=== PATIENT | female | born 1965 | race Caucasian/White ===

== ENCOUNTER → 2016-07-26 | Outpatient (CLI) | payer OTHER ==
[2015-07-25 14:10] VITALS: BP 137/68
[2016-07-26 08:04] LABS: BASO % 1 % (0-3); EOS % 5 % (0-3); HEMATOCRIT 43.6 % (36.0-47.0); HEMOGLOBIN 14.1 g/dL (12.0-15.5); LYMPH # 1.2 x10^3/uL (1.0-4.8); LYMPH % 34 % (24-48); MEAN CORPUSCULAR HEMOGLOBIN 30 pg (25-35); MEAN CORPUSCULAR HGB CONC 32 g/dL (31-37); MEAN CORPUSCULAR VOLUME 92 fL (79-100); MONO % 8 % (0-9); NEUT % 52 % (31-73); PLATELET COUNT 137 x10^3/uL (140-400); RED BLOOD COUNT 4.74 x10^6/uL (3.50-5.40); RED CELL DISTRIBUTION WIDTH 13.8 % (11.5-14.5); WHITE BLOOD COUNT 3.4 x10^3/uL (4.0-11.0)
[2016-07-26 08:05] LABS: BILIRUBIN,URINE NEGATIVE (NEG); GLUCOSE,URINE NEGATIVE (NEG); NITRITE,URINE NEGATIVE (NEG); PH,URINE 5.5; PROTEIN,URINE NEGATIVE (NEG-TRACE); UROBILINOGEN,URINE 0.2 mg/dL (0.2 mg/dL)
[2016-07-26 08:22] LABS: ALBUMIN 3.7 g/dL (3.4-5.0); ALBUMIN/GLOBULIN RATIO 1.1 (1.0-1.7); BACTERIA,URINE MODERATE /HPF (0-FEW); CALCIUM 9.9 mg/dL (8.5-10.1); CHOLESTEROL/HDL RATIO 1.6; CREATININE 1.1 mg/dL (0.6-1.0); POTASSIUM 3.9 mmol/L (3.5-5.1); RBC,URINE OCC /HPF (0-2); SQUAMOUS EPITHELIAL CELL,UR MANY /LPF; TOTAL PROTEIN 7.2 g/dL (6.4-8.2); WBC,URINE 20-40 /HPF (0-4)
== END | disposition home or self-care (01) ==
LOC: LAB 07:30
PROVIDERS: ATTEND Family Medicine
DX: Z00.00 Encounter for general adult medical examination without abnormal findings (principal); Z80.41 Family history of malignant neoplasm of ovary
CPT/HCPCS: 36415; 80053; 80061; 81001; 84443; 85027; 86304; 87086

== ENCOUNTER → 2016-11-16 | Outpatient (CLI) | payer OTHER ==
[2015-07-25 14:10] VITALS: BP 137/68
--- NOTE | 2016-11-16 12:33 | RAD ---
Chest, 2 views, 11/16/2016: History: Cough The heart size is normal. Mild pleural opacities over the apices are probably due to scarring. No acute pulmonary infiltrate is seen. There is no evidence of pleural fluid. IMPRESSION: 1. Apical opacities probably due to scarring. 2. No acute cardiopulmonary abnormality is detected.
== END | disposition home or self-care (01) ==
LOC: RAD 10:19
PROVIDERS: ATTEND Family Medicine
DX: R05 Cough (principal)
CPT/HCPCS: 71020

== ENCOUNTER → 2017-07-28 | Outpatient (CLI) | payer OTHER ==
[2017-07-28 08:37] LABS: ADD MAN DIFF? NO
[2017-07-28 08:45] LABS: BASO % 1 % (0-3); EOS # 0.1 x10^3/uL (0.0-0.7); EOS % 3 % (0-3); HEMOGLOBIN 15.8 g/dL (12.0-15.5); LYMPH # 0.9 x10^3/uL (1.0-4.8); LYMPH % 24 % (24-48); MEAN CORPUSCULAR HEMOGLOBIN 31 pg (25-35); MEAN CORPUSCULAR HGB CONC 34 g/dL (31-37); MEAN CORPUSCULAR VOLUME 91 fL (79-100); MONO # 0.3 x10^3/uL (0.0-1.1); MONO % 8 % (0-9); NEUT # 2.5 x10^3uL (1.8-7.7); NEUT % 63 % (31-73); PLATELET COUNT 166 x10^3/uL (140-400); RED BLOOD COUNT 5.16 x10^6/uL (3.50-5.40); RED CELL DISTRIBUTION WIDTH 13.8 % (11.5-14.5); WHITE BLOOD COUNT 3.9 x10^3/uL (4.0-11.0)
[2017-07-28 09:11] LABS: ALBUMIN 4.1 g/dL (3.4-5.0); ALBUMIN/GLOBULIN RATIO 1.1 (1.0-1.7); ALK PHOS 92 U/L (46-116); ALT (SGPT) 25 U/L (14-59); ANION GAP 8 (6-14); AST (SGOT) 24 U/L (15-37); BLOOD UREA NITROGEN 20 mg/dL (7-20); BUN/CREATININE RATIO 22 (6-20); CALCIUM 10.7 mg/dL (8.5-10.1); CARBON DIOXIDE 30 mmol/L (21-32); CHLORIDE 104 mmol/L (98-107); CHOLESTEROL 188 mg/dL (0-200); CREATININE 0.9 mg/dL (0.6-1.0); GFR 65.2; GLUCOSE 82 mg/dL (70-99); HDLC 111 mg/dL (40-60); LDLC 71 mg/dL (0-100); NON-HDL CHOLESTEROL 77 mg/dL (0-129); POTASSIUM 4.5 mmol/L (3.5-5.1); SODIUM 142 mmol/L (136-145); TOTAL BILIRUBIN 2.1 mg/dL (0.2-1.0); TOTAL PROTEIN 7.7 g/dL (6.4-8.2); TRIGLYCERIDES 31 mg/dL (0-150); VLDLC 6 mg/dL (0-40)
[2017-07-28 09:12] LABS: CHOLESTEROL/HDL RATIO 1.7
[2017-07-28 09:19] LABS: THYROID STIM HORMONE (TSH) 1.296 uIU/mL (0.358-3.74)
[2017-07-28 10:11] LABS: BILIRUBIN,URINE NEGATIVE (NEG); CLARITY,URINE CLEAR; COLOR,URINE YELLOW; GLUCOSE,URINE NEGATIVE (NEG); NITRITE,URINE NEGATIVE (NEG); PROTEIN,URINE NEGATIVE (NEG-TRACE); UROBILINOGEN,URINE 0.2 mg/dL (0.2 mg/dL)
[2017-07-28 10:52] LABS: BACTERIA,URINE 0 /HPF (0-FEW); RBC,URINE 0 /HPF (0-2); SQUAMOUS EPITHELIAL CELL,UR MOD /LPF; WBC,URINE 0 /HPF (0-4)
[2017-07-28 19:13] LABS: ESTRADIOL LEVEL 34.8 pg/mL (.); FSH 119.9 mIU/mL (.)
== END | disposition home or self-care (01) ==
LOC: LAB 08:25
DX: Z00.01 Encounter for general adult medical examination with abnormal findings (principal); N92.6 Irregular menstruation, unspecified; Z80.41 Family history of malignant neoplasm of ovary
CPT/HCPCS: 36415; 80053; 80061; 81001; 82306; 82670; 83001; 84443; 85025; 86304; 87086

== ENCOUNTER → 2017-08-14 | Outpatient (CLI) | payer OTHER ==
[2017-08-14 16:21] LABS: IONIZED CALCIUM 1.49 mmol/L (1.13-1.32)
[2017-08-15 09:20] LABS: CALCIUM PTH 11.2 mg/dL (8.7-10.2); CREATININE PTH 1.06 mg/dL (0.57-1.00); PHOSPHORUS PTH 3.1 mg/dL (2.5-4.5); PTH INTACT 99 pg/mL (15-65); eGFR AFRICAN-AMER 69 (>59); eGFR NON AFRICAN-AMER 60 (>59)
== END | disposition home or self-care (01) ==
LOC: LAB 15:51
DX: E83.52 Hypercalcemia (principal)
CPT/HCPCS: 36415; 82310; 83970

== ENCOUNTER → 2017-08-29 | Outpatient (CLI) | payer OTHER | END | disposition home or self-care (01) | LOC: US 13:50 | DX: R97.1 Elevated cancer antigen 125 [CA 125] (principal); Z78.0 Asymptomatic menopausal state; Z80.41 Family history of malignant neoplasm of ovary | CPT/HCPCS: 76830; 76856 ==

== ENCOUNTER → 2017-09-25 | Outpatient (CLI) | payer OTHER ==
[2017-09-25 11:45] LABS: IONIZED CALCIUM 1.46 mmol/L (1.13-1.32)
[2017-09-25 11:52] LABS: CALCIUM 10.3 mg/dL (8.5-10.1)
[2017-09-25 11:52] LABS: PHOSPHORUS 3.4 mg/dL (2.6-4.7)
[2017-09-26 13:19] LABS: CALCIUM PTH 10.2 mg/dL (8.7-10.2); CREATININE PTH 0.94 mg/dL (0.57-1.00); PHOSPHORUS PTH 3.2 mg/dL (2.5-4.5); PTH INTACT 123 pg/mL (15-65); eGFR AFRICAN-AMER 80 (>59); eGFR NON AFRICAN-AMER 69 (>59)
== END | disposition home or self-care (01) ==
LOC: LAB 11:17
DX: E83.52 Hypercalcemia (principal)
CPT/HCPCS: 36415; 82310; 83970; 84100

== ENCOUNTER → 2017-09-28 | Outpatient (CLI) | payer OTHER | END | disposition home or self-care (01) | LOC: NM 09:01 | DX: D35.1 Benign neoplasm of parathyroid gland (principal); E83.52 Hypercalcemia | CPT/HCPCS: 78070; 96374; A9500 ==

== ENCOUNTER → 2017-11-06 | Outpatient (CLI) | payer OTHER | END | disposition home or self-care (01) | LOC: LAB 11:44 | DX: E55.9 Vitamin D deficiency, unspecified (principal) | CPT/HCPCS: 36415; 82306 ==

== ENCOUNTER → 2017-11-09 | Outpatient (CLI) | payer OTHER | END | disposition home or self-care (01) | LOC: KCIC US 15:29 | DX: E21.3 Hyperparathyroidism, unspecified (principal); E55.9 Vitamin D deficiency, unspecified | CPT/HCPCS: 76536 ==

== ENCOUNTER → 2018-02-20 | Outpatient (CLI) | payer OTHER | END | disposition home or self-care (01) | LOC: MAMMO 10:43 | DX: R92.8 Other abnormal and inconclusive findings on diagnostic imaging of breast (principal); E55.9 Vitamin D deficiency, unspecified; Z80.41 Family history of malignant neoplasm of ovary | CPT/HCPCS: 77065 ==

== ENCOUNTER 2018-02-28 06:12 | Observation (INO) | payer OTHER ==
[2018-02-28] MEDS: IV RINGERS,LACTATED 1000ML 1,000 ML IV (06:42)
[2018-02-28] MEDS ORDERED: ONDANSETRON PF 4 MG/2 ML VIAL. IV ×2 (07:00→09:30)
[2018-02-28] MEDS ORDERED: PROCHLORPERAZINE 10 MG/2 ML VIAL. IV (07:00)
[2018-02-28] MEDS ORDERED: MORPHINE SULFATE 2 MG/ML DISP.SYRIN. IV ×2 (07:00→09:30)
[2018-02-28] MEDS ORDERED: LIDOCAINE 1% PF 2 ML VIAL. ID (07:00)
[2018-02-28] MEDS ORDERED: ePHEDrine PF IN SALINE 50 MG/5 ML DISP.SYRIN IV (07:12)
[2018-02-28] MEDS ORDERED: ONDANSETRON PF 4 MG/2 ML VIAL. (07:12)
[2018-02-28] MEDS ORDERED: DEXAMETHASONE SOD PHOS 20 MG/5 ML VIAL. (07:12)
[2018-02-28] MEDS ORDERED: PHENYLEPHRINE in 0.9% NACL PF 1 MG/10 ML SYRINGE. IV (07:12)
[2018-02-28] MEDS ORDERED: MIDAZOLAM HCL/PF 2 MG/2 ML VIAL. (07:13)
[2018-02-28] MEDS ORDERED: ROCURONIUM 50 MG/5 ML VIAL. (07:14)
[2018-02-28] MEDS ORDERED: fentaNYL PF VIAL 100 MCG/2 ML VIAL ×3 (07:14→09:41)
[2018-02-28] MEDS ORDERED: NEOSTIGMINE METHYLSULFATE 5 MG/5 ML SYRINGE. (08:05)
[2018-02-28] MEDS ORDERED: GLYCOPYRROLATE 1 MG/5 ML VIAL. ×2 (08:05→10:08)
[2018-02-28] MEDS ORDERED: diphenhydrAMINE 50 MG/ML VIAL (08:06)
[2018-02-28] MEDS ORDERED: FAMOTIDINE 20 MG/2 ML VIAL (08:06)
[2018-02-28] MEDS ORDERED: 0.9 % SODIUM CHLORIDE 10 ML DISP.SYRIN. IV (09:30)
[2018-02-28] MEDS ORDERED: HYDROcodone/APAP 5/325MG 1 TAB TABLET PO (09:30)
[2018-02-28] MEDS: fentaNYL PF VIAL 100 MCG/2 ML VIAL IV ×2 (10:00→10:46)
[2018-02-28] MEDS ORDERED: ALBUMIN HUMAN 5% 0 ML IV (10:16)
[2018-02-28] MEDS: GLYCOPYRROLATE 1 MG/5 ML VIAL. IV (10:28)
[2018-02-28] MEDS: IV 1/2 NORMAL SALINE 1,000 ML IV ×2 (11:32→22:45)
[2018-02-28 17:31] LABS: CALCIUM 9.4 mg/dL (8.5-10.1)
[2018-02-28] MEDS: ACETAMINOPHEN 325 MG TABLET. PO (21:36)
[2018-03-01] MEDS: HYDROcodone/APAP 5/325MG 1 TAB TABLET PO (08:30)
[2018-03-01 09:06] LABS: CALCIUM 8.5 mg/dL (8.5-10.1)
== END 2018-03-01 12:40 | disposition home or self-care (01) ==
LOC: SURG 06:12 → 4 NORTH 09:25
PROVIDERS: Surgery
DX: E21.3 Hyperparathyroidism, unspecified (principal)
CPT/HCPCS: 36415; 82310; 88305; 88331; A7015; G0378; G0379; J1100; J1200; J2250; J2370; J2405; J2710; J3010; J3490; P9045; S0028

== ENCOUNTER → 2018-03-13 | Outpatient (CLI) | payer OTHER ==
[2018-03-01 11:00] VITALS: BP 99/54
[~2018-03-13] MED LIST: CALC1TAB67 PO; HYDR-2758 PO
== END | disposition home or self-care (01) ==
LOC: LAB 13:18
PROVIDERS: ATTEND Surgery
DX: E21.3 Hyperparathyroidism, unspecified (principal)
CPT/HCPCS: 36415; 82310

== ENCOUNTER → 2018-07-25 | Outpatient (CLI) | payer OTHER ==
[2018-03-01 11:00] VITALS: BP 99/54
[~2018-07-25] MED LIST changes: -HYDR-2758 PO; +HYDR-2761 PO
[2018-07-25 10:18] LABS: BASO % 1 % (0-3); EOS # 0.2 x10^3/uL (0.0-0.7); EOS % 4 % (0-3); HEMATOCRIT 42.3 % (36.0-47.0); HEMOGLOBIN 14.5 g/dL (12.0-15.5); LYMPH % 24 % (24-48); MEAN CORPUSCULAR HEMOGLOBIN 31 pg (25-35); MEAN CORPUSCULAR HGB CONC 34 g/dL (31-37); MEAN CORPUSCULAR VOLUME 91 fL (79-100); MONO # 0.3 x10^3/uL (0.0-1.1); MONO % 7 % (0-9); NEUT # 2.7 x10^3uL (1.8-7.7); NEUT % 64 % (31-73); PLATELET COUNT 168 x10^3/uL (140-400); RED BLOOD COUNT 4.66 x10^6/uL (3.50-5.40); RED CELL DISTRIBUTION WIDTH 14.1 % (11.5-14.5); WHITE BLOOD COUNT 4.2 x10^3/uL (4.0-11.0)
[2018-07-25 10:19] LABS: BILIRUBIN,URINE NEGATIVE (NEG); CLARITY,URINE CLEAR; COLOR,URINE YELLOW; NITRITE,URINE NEGATIVE (NEG); PROTEIN,URINE NEGATIVE (NEG-TRACE); UROBILINOGEN,URINE 0.2 mg/dL (0.2 mg/dL)
[2018-07-25 10:27] LABS: SQUAMOUS EPITHELIAL CELL,UR OCC /LPF
[2018-07-25 10:29] LABS: BACTERIA,URINE 0 /HPF (0-FEW); RBC,URINE 0 /HPF (0-2); WBC,URINE OCC /HPF (0-4)
[2018-07-25 10:40] LABS: ALBUMIN 3.9 g/dL (3.4-5.0); CALCIUM 9.3 mg/dL (8.5-10.1); GFR 57.6; TOTAL BILIRUBIN 2.1 mg/dL (0.2-1.0); TOTAL PROTEIN 7.7 g/dL (6.4-8.2)
[2018-07-25 10:48] LABS: FREE T4 0.76 ng/dL (0.76-1.46); THYROID STIM HORMONE (TSH) 1.513 uIU/mL (0.358-3.74)
[2018-07-25 16:11] LABS: CHOLESTEROL/HDL RATIO 1.7
[2018-07-25 22:10] LABS: CALCIUM PTH 9.3 mg/dL (8.7-10.2); CREATININE PTH 0.98 mg/dL (0.57-1.00); PHOSPHORUS PTH 3.7 mg/dL (2.5-4.5); PTH INTACT 63 pg/mL (15-65)
== END | disposition home or self-care (01) ==
LOC: LAB 07:50
PROVIDERS: ATTEND Family Medicine
DX: Z00.00 Encounter for general adult medical examination without abnormal findings (principal); E04.1 Nontoxic single thyroid nodule
CPT/HCPCS: 36415; 80053; 80061; 81001; 82306; 83970; 84439; 84443; 85025

== ENCOUNTER → 2019-02-19 | Outpatient (CLI) | payer OTHER ==
[2018-03-01 11:00] VITALS: BP 99/54
--- NOTE | 2019-02-19 13:28 | RAD ---
DATE: February 19, 2019 EXAM: MAMMO ANIKA SCREENING BILATERAL HISTORY: Screening study. COMPARISON: 2016 and 2018 This study was interpreted with the benefit of Computerized Aided Detection (CAD). 2-D digital mammographic views of both breasts were performed in the CC and MLO projections. 3-D digital tomosynthesis images of both breasts were performed in the CC and MLO projections and reviewed on a computer workstation. FINDINGS: Breast Density: HETERO The breast parenchyma is heterogenously dense, which could reduce sensitivity of mammography. Breast parenchyma level C.. There are no dominant suspicious masses, suspicious microcalcifications or evidence of architectural distortion. IMPRESSION: No mammographic indicators for malignancy. BI-RADS CATEGORY: 1 NEGATIVE RECOMMENDED FOLLOW-UP: 12M 12 MONTH FOLLOW-UP PQRS compliance statement: Patient information was entered into a reminder system with a target due date February 21, 2020 for the next mammogram. Mammography is a sensitive method for finding small breast cancers, but it does not detect them all and is not a substitute for careful clinical examination. A negative mammogram does not negate a clinically suspicious finding and should not result in delay in biopsying a clinically suspicious abnormality. "Our facility is accredited by the [employer] Mammography [employer]." The patient's breast density may affect the ability of mammography to detect breast cancer. There are 4 categories of breast density, A, B, C and D. Breast density A means that most of the breast tissue is replaced with adipose tissue and therefore is not dense. Breast density B means that the breast tissue is mildly dense and scattered. Breast density C means that the breast tissue is heterogeneously dense. Breast density D means that the breast tissue is very dense. Breast densities especially C and D may decrease the sensitivity of mammography to detect breast cancer. Therefore, the patient may benefit from 3-D breast mammography (3D breast tomography) as a part of their screening mammogram. Insurance may or may not pay for this additional imaging. The patient's breast density based on today's mammogram is category C.
== END | disposition home or self-care (01) ==
LOC: MAMMO 10:54
PROVIDERS: ATTEND Family Medicine
DX: Z12.31 Encounter for screening mammogram for malignant neoplasm of breast (principal)
CPT/HCPCS: 77063; 77067

== ENCOUNTER → 2019-09-13 | Outpatient (CLI) | payer OTHER ==
[2018-03-01 11:00] VITALS: BP 99/54
== END | disposition home or self-care (01) ==
LOC: LAB 12:13
PROVIDERS: ATTEND Nurse Practitioner Gerontology
DX: Z11.59 Encounter for screening for other viral diseases (principal)
CPT/HCPCS: 36415; 86803

== ENCOUNTER → 2019-10-01 | Outpatient (CLI) | payer OTHER ==
[2018-03-01 11:00] VITALS: BP 99/54
--- NOTE | 2019-10-01 16:07 | RAD ---
EXAM: Pelvis and right hip, 3 views. HISTORY: Pain. COMPARISON: None. FINDINGS: A frontal view the pelvis and 2 views of the right hip are obtained. There is no fracture, dislocation or subluxation. The femoral heads are normal in configuration. IMPRESSION: No acute osseous finding. Electronically signed by: Erin Pappas MD (10/01/2019 4:04 PM) [id number]
== END | disposition home or self-care (01) ==
LOC: RAD 14:57
PROVIDERS: ATTEND Nurse Practitioner Gerontology
DX: M25.551 Pain in right hip (principal)
CPT/HCPCS: 73502

== ENCOUNTER → 2020-04-29 | Outpatient (CLI) | payer OTHER ==
[2018-03-01 11:00] VITALS: BP 99/54
--- NOTE | 2020-04-29 17:29 | RAD ---
EXAMINATION: Bilateral screening mammogram, 04/29/2020 9:00 AM CLINICAL INDICATION: 54-year-old woman presenting for screening mammogram. COMPARISON: 02/13/2018 and 02/19/2019 TECHNIQUE: Digital bilateral full-field CC and MLO views, and CC and MLO tomosynthesis views of the breasts were obtained. CAD was utilized. FINDINGS: The breasts are heterogeneously dense, which may obscure small masses. There is no mass, suspicious calcification, or architectural distortion. IMPRESSION: 1. No mammographic evidence of malignancy. 2. BI-RADS 1: Negative. 3. Routine annual screening mammogram is recommended in 1 year. The patient will receive a reminder letter by mail when she is due for her next exam. Electronically signed by: Yola Mcmillan MD (04/29/2020 5:26 PM) [id number]
== END ==
LOC: MAMMO 08:58
PROVIDERS: ATTEND Nurse Practitioner Gerontology
DX: Z12.31 Encounter for screening mammogram for malignant neoplasm of breast (principal)
CPT/HCPCS: 77063; 77067

== ENCOUNTER → 2020-06-15 | Outpatient (CLI) | payer OTHER ==
[2018-03-01 11:00] VITALS: BP 99/54
== END ==
LOC: SPEC 17:10
PROVIDERS: ATTEND Nurse Practitioner Gerontology
DX: Z00.00 Encounter for general adult medical examination without abnormal findings (principal)
CPT/HCPCS: 88175

== ENCOUNTER → 2020-06-17 | Outpatient (CLI) | payer OTHER ==
[2018-03-01 11:00] VITALS: BP 99/54
[2020-06-17 09:41] LABS: HEMATOCRIT 39.8 % (36.0-47.0); HEMOGLOBIN 13.3 g/dL (12.0-15.5); RED BLOOD COUNT 4.46 x10^6/uL (3.50-5.40); RED CELL DISTRIBUTION WIDTH 15.3 % (11.5-14.5); WHITE BLOOD COUNT 3.3 x10^3/uL (4.0-11.0)
[2020-06-17 09:56] LABS: ALBUMIN 3.8 g/dL (3.4-5.0); ALBUMIN/GLOBULIN RATIO 1.2 (1.0-1.7); CALCIUM 9.3 mg/dL (8.5-10.1); GFR 57.1; POTASSIUM 4.2 mmol/L (3.5-5.1); TOTAL BILIRUBIN 1.3 mg/dL (0.2-1.0)
[2020-06-17 19:09] LABS: CA 125 9.5 U/mL (0.0-38.1)
[2020-06-18 00:08] LABS: CALCIUM PTH 9.7 mg/dL (8.7-10.2); PHOSPHORUS PTH 4.2 mg/dL (3.0-4.3); PTH INTACT 41 pg/mL (15-65)
== END ==
LOC: LAB 08:55
PROVIDERS: ATTEND Nurse Practitioner Gerontology
DX: Z00.00 Encounter for general adult medical examination without abnormal findings (principal); E21.3 Hyperparathyroidism, unspecified
CPT/HCPCS: 36415; 80053; 82306; 82652; 83970; 85027; 86304

== ENCOUNTER → 2021-05-10 | Outpatient (CLI) | payer OTHER ==
[2018-03-01 11:00] VITALS: BP 99/54
--- NOTE | 2021-05-10 17:14 | RAD ---
Bilateral digital screening 2-D and 3-D (tomosynthesis) mammogram: Reason for examination: Routine screening. Comparison is made to previous study dated 04/29/2020. Bilateral mammograms in CC and oblique projections were obtained with 2-D imaging and 3-D tomosynthes is imaging and reviewed on the workstation. Interpretation was made with the benefit of CAD. Findings: Breast density: Category C. The breasts are heterogeneously dense, which may obscure small masses. There are no suspicious masses, malignant appearing calcifications or architectural distortion. Impression: No evidence of malignancy. ASSESSMENT: BI-RADS 1. Recommendations: Routine screening mammograms. This patient's information has been entered into a reminder system for the patient to be notified wit h the results of her examination and a target date for the next mammogram. Your patient's mammogram demonstrates that she has dense breast tissue (breast density category C or D), which could hide abnormalities, and if she has other risk factors for breast cancer that have bee n identified, she might benefit from supplemental screening tests that may be suggested by you as her ordering physician. Dense breast tissue, in and of itself, is a relatively common condition. Therefo re, this information is not provided to cause undue concern, but rather to raise your awareness and t o promote discussion with your patient regarding the presence of other risk factors, in addition to d ense breast tissue. Electronically signed by: Alina Tuttel MD (05/10/2021 5:11 PM) [id number]
== END ==
LOC: MAMMO 08:12
PROVIDERS: ATTEND Family Medicine
DX: Z12.31 Encounter for screening mammogram for malignant neoplasm of breast (principal)
CPT/HCPCS: 77063; 77067

== ENCOUNTER → 2021-06-16 | Outpatient (CLI) | payer OTHER ==
[2018-03-01 11:00] VITALS: BP 99/54
[2021-06-16 12:30] LABS: HEMATOCRIT 42.5 % (36.0-47.0); HEMOGLOBIN 14.4 g/dL (12.0-15.5); RED BLOOD COUNT 4.54 x10^6/uL (3.50-5.40); RED CELL DISTRIBUTION WIDTH 13.8 % (11.5-14.5)
[2021-06-16 12:54] LABS: ALBUMIN 4.1 g/dL (3.4-5.0); ALBUMIN/GLOBULIN RATIO 1.2 (1.0-1.7); CALCIUM 9.1 mg/dL (8.5-10.1); CREATININE 0.9 mg/dL (0.6-1.0); GFR 64.3; POTASSIUM 3.9 mmol/L (3.5-5.1); TOTAL BILIRUBIN 2.2 mg/dL (0.2-1.0); TOTAL PROTEIN 7.4 g/dL (6.4-8.2)
[2021-06-16 12:57] LABS: CHOLESTEROL/HDL RATIO 1.7
[2021-06-16 13:18] LABS: FREE T4 0.95 ng/dL (0.76-1.46); THYROID STIM HORMONE (TSH) 0.683 uIU/mL (0.358-3.74)
== END ==
LOC: LAB 12:06
PROVIDERS: ATTEND Family Medicine
DX: Z01.419 Encounter for gynecological examination (general) (routine) without abnormal findings (principal); E55.9 Vitamin D deficiency, unspecified; E21.3 Hyperparathyroidism, unspecified
CPT/HCPCS: 36415; 80053; 80061; 82306; 84439; 84443; 85027